=== PATIENT | male | born 1980 | race Caucasian/White ===

== ENCOUNTER 2017-06-20 09:00 | Emergency (ER) | payer SELFPAY ==
[~2017-06-20] VITALS: Ht 180.3 cm; Wt 132.6 kg
[~2017-06-20 09:00] MED LIST: CIPRO500 MG PO; FLOMAX0.4 MG PO; MIRALAX17 GM PO; MOTRIN600 MG PO; OXAYDO5 MG PO; PERCOCET 5/31 TABLET PO; TYLENOL EXTRA500 MG PO; ZOFRAN ODT4 MG PO; ZOFRAN4 MG PO
[2017-06-20 09:26] LABS: HEMATOCRIT 45.2 % (38.0-50.0); HEMOGLOBIN 15.9 G/DL (12.5-16.6); MCH 30.3 PG (29.0-34.0); MCHC 35.2 G/DL (30.0-36.0); MCV 86.3 FL (86-99); PLATELET COUNT 419 K/uL (156-360); RBC DIS.WIDTH-CV 12.5 % (11.8-14.6); RBC DIS.WIDTH-SD 39.2 % (39-53); RED BLOOD COUNT 5.24 M/uL (4.00-5.50)
[2017-06-20 09:32] LABS: ALBUMIN 4.5 g/dL (3.2-4.8); CHLORIDE 105 mEq/L (99-109); POTASSIUM 4.5 mEq/L (3.7-5.4); SODIUM 139 mEq/L (136-147)
[2017-06-20 09:35] LABS: GLUCOSE 117 mg/dL (70-99); TOTAL PROTEIN 7.6 g/dL (6.4-8.3)
[2017-06-20 09:37] LABS: TOTAL BILIRUBIN 0.4 mg/dL (0.0-1.0)
[2017-06-20 09:38] LABS: ALKALINE PHOSPHATASE 104 IU/L (3-129); CREATININE 1.2 mg/dL (0.6-1.3); GFR ESTIMATE (CALCULATED) > 59 mL/min/ (58.99-99999)
[2017-06-20 09:40] LABS: AST (GOT) 21 IU/L (2-34); UREA NITROGEN (BUN) 14 mg/dL (9-23)
[2017-06-20 09:41] LABS: ALT (GPT) 52 IU/L (3-49)
[2017-06-20 11:32] LABS: APPEARANCE CLEAR ((CLEAR)); BILIRUBIN NEGATIVE; BLOOD NEGATIVE; COLOR YELLOW ((YELLOW)); GLUCOSE (STRIP) NEGATIVE; KETONES NEGATIVE; LEUKOCYTES NEGATIVE; NITRITE NEGATIVE; PROTEIN (STRIP) NEGATIVE; SPECIFIC GRAVITY 1.018 (1.000-1.030); UCUL ADDED? NO; UROBILINOGEN 0.2 MG/DL (0.2-1.0)
[2017-06-20 11:52] LABS: AMYLASE 28 IU/L (1-118)
[2017-06-20 12:01] LABS: LIPASE 8 U/L (1.0-51.0)
[2017-06-20 12:48] LABS: TROP-I INTERPRETATION NEGATIVE; TROPONIN-I < 0.01 ng/mL (0.0-0.30)
[2017-06-20] MEDS ORDERED: ZOFRAN4 MG PO (13:29)
[2017-06-20] MEDS ORDERED: PERCOCET 5/31 TABLET PO (13:29)
[2017-06-20 13:52] VITALS: BP 151/91
== END 2017-06-20 13:53 | disposition home or self-care (01) ==
LOC: EME 09:00
DX: K80.20 Calculus of gallbladder without cholecystitis without obstruction (principal)
CPT/HCPCS: 76705; 80053; 81003; 82150; 83690; 84484; 85027; 93005; 99281; 99284

== ENCOUNTER 2017-07-07 02:12 | Emergency (ER) | payer BC ==
[~2017-07-07] VITALS: Ht 180.3 cm; Wt 133.4 kg
[2017-07-07 03:07] LABS: HEMATOCRIT 45.9 % (38.0-50.0); HEMOGLOBIN 16.2 G/DL (12.5-16.6); MCH 30.4 PG (29.0-34.0); MCHC 35.3 G/DL (30.0-36.0); MCV 86.1 FL (86-99); PLATELET COUNT 438 K/uL (156-360); RBC DIS.WIDTH-CV 12.7 % (11.8-14.6); RBC DIS.WIDTH-SD 39.2 % (39-53); RED BLOOD COUNT 5.33 M/uL (4.00-5.50); WHITE BLOOD COUNT 9.3 K/uL (4.1-10.2)
[2017-07-07 03:16] LABS: CHLORIDE 103 mEq/L (99-109); POTASSIUM 4.1 mEq/L (3.7-5.4); SODIUM 141 mEq/L (136-147)
[2017-07-07 03:17] LABS: GLUCOSE 112 mg/dL (70-99)
[2017-07-07 03:21] LABS: CREATININE 1.1 mg/dL (0.6-1.3); GFR ESTIMATE (CALCULATED) > 59 mL/min/ (58.99-99999)
[2017-07-07 03:22] LABS: UREA NITROGEN (BUN) 14 mg/dL (9-23)
[2017-07-07 03:28] LABS: TROP-I INTERPRETATION NEGATIVE; TROPONIN-I < 0.01 ng/mL (0.0-0.30)
[2017-07-07 03:56] LABS: ALBUMIN 4.3 g/dL (3.2-4.8)
[2017-07-07 03:59] LABS: TOTAL PROTEIN 7.7 g/dL (6.4-8.3)
[2017-07-07 04:01] LABS: TOTAL BILIRUBIN 0.6 mg/dL (0.0-1.0)
[2017-07-07 04:02] LABS: ALKALINE PHOSPHATASE 94 IU/L (3-129)
[2017-07-07 04:04] LABS: AST (GOT) 22 IU/L (2-34)
[2017-07-07 04:05] LABS: ALT (GPT) 42 IU/L (3-49); DIRECT BILIRUBIN 0.2 mg/dL (0.0-0.3)
[2017-07-07 04:06] LABS: LIPASE 12 U/L (1.0-51.0)
[2017-07-07 04:53] VITALS: BP 169/117
== END 2017-07-07 04:55 | disposition home or self-care (01) ==
LOC: EME 02:12
DX: R10.13 Epigastric pain (principal); R07.9 Chest pain, unspecified; K80.20 Calculus of gallbladder without cholecystitis without obstruction; Z87.442 Personal history of urinary calculi
CPT/HCPCS: 71046; 80048; 80076; 83690; 84484; 85027; 93005; 99281; 99284

== ENCOUNTER 2017-07-15 03:28 | Emergency (ER) | payer BC ==
[~2017-07-15] VITALS: Ht 180.3 cm; Wt 130.7 kg
[2017-07-15 03:55] LABS: HEMATOCRIT 44.7 % (38.0-50.0); HEMOGLOBIN 15.9 G/DL (12.5-16.6); MCH 30.4 PG (29.0-34.0); MCHC 35.6 G/DL (30.0-36.0); MCV 85.5 FL (86-99); PLATELET COUNT 413 K/uL (156-360); RBC DIS.WIDTH-CV 12.6 % (11.8-14.6); RBC DIS.WIDTH-SD 39.3 % (39-53); RED BLOOD COUNT 5.23 M/uL (4.00-5.50); WHITE BLOOD COUNT 12.7 K/uL (4.1-10.2)
[2017-07-15 04:03] LABS: ALBUMIN 4.5 g/dL (3.2-4.8)
[2017-07-15 04:04] LABS: CHLORIDE 107 mEq/L (99-109); POTASSIUM 4.2 mEq/L (3.7-5.4); SODIUM 140 mEq/L (136-147)
[2017-07-15 04:05] LABS: APPEARANCE CLEAR ((CLEAR)); BILIRUBIN NEGATIVE; BLOOD NEGATIVE; COLOR YELLOW ((YELLOW)); GLUCOSE (STRIP) NEGATIVE; KETONES NEGATIVE; LEUKOCYTES NEGATIVE; NITRITE NEGATIVE; PROTEIN (STRIP) NEGATIVE; SPECIFIC GRAVITY 1.024 (1.000-1.030); UCUL ADDED? NO; UROBILINOGEN 0.2 MG/DL (0.2-1.0)
[2017-07-15 04:06] LABS: GLUCOSE 130 mg/dL (70-99); TOTAL PROTEIN 7.9 g/dL (6.4-8.3)
[2017-07-15 04:08] LABS: TOTAL BILIRUBIN 0.7 mg/dL (0.0-1.0)
[2017-07-15 04:09] LABS: ALKALINE PHOSPHATASE 93 IU/L (3-129)
[2017-07-15 04:10] LABS: CREATININE 1.2 mg/dL (0.6-1.3); GFR ESTIMATE (CALCULATED) > 59 mL/min/ (58.99-99999)
[2017-07-15 04:11] LABS: AST (GOT) 21 IU/L (2-34); UREA NITROGEN (BUN) 18 mg/dL (9-23)
[2017-07-15 04:12] LABS: ALT (GPT) 41 IU/L (3-49)
[2017-07-15 04:13] LABS: LIPASE 9 U/L (1.0-51.0)
[2017-07-15] MEDS ORDERED: CIPRO500 MG PO (11:45)
[2017-07-15] MEDS ORDERED: BENTYL20 MG PO (11:45)
[2017-07-15] MEDS ORDERED: FLAGYL500 MG PO (11:45)
[2017-07-15] MEDS ORDERED: NORCO 5/3251 TABLET PO (11:45)
[2017-07-15 11:55] VITALS: BP 116/75
== END 2017-07-15 11:56 | disposition home or self-care (01) ==
LOC: EME 03:28
DX: K80.10 Calculus of gallbladder with chronic cholecystitis without obstruction (principal); K76.0 Fatty (change of) liver, not elsewhere classified; R19.7 Diarrhea, unspecified; Z87.442 Personal history of urinary calculi
CPT/HCPCS: 76705; 80053; 81003; 83690; 85027; 99281; 99285; J2270; J2405; J7030

== ENCOUNTER 2017-07-30 05:29 | Day surgery (SDC) | payer BC ==
[~2017-07-30] VITALS: Ht 182.9 cm; Wt 120.2 kg
[~2017-07-30 05:29] MED LIST changes: +BENTYL20 MG PO; +FLAGYL500 MG PO; +NORCO 5/3251 TABLET PO
[2017-07-30 06:13] VITALS: BP 134/81
[2017-07-30 06:14] VITALS: BP 134/81
[2017-07-30] MEDS ORDERED: HYDROCODON-ACE1 EA11 PO (09:08)
[2017-07-30] MEDS ORDERED: OXYCODONE HCL5 MG PO (09:08)
[2017-07-30 10:46] VITALS: BP 129/82
[2017-07-30 12:03] VITALS: BP 128/72
[2017-07-30 13:40] VITALS: BP 127/86
[2017-07-30 15:00] VITALS: BP 131/86
== END 2017-07-30 15:27 | disposition home or self-care (01) ==
LOC: SDC 05:29
PROC: 0FT44ZZ Resection of Gallbladder, Percutaneous Endoscopic Approach (ICD-10-PCS; principal; 2017-07-30)
DX: K80.64 Calculus of gallbladder and bile duct with chronic cholecystitis without obstruction (principal); K76.0 Fatty (change of) liver, not elsewhere classified; E66.9 Obesity, unspecified; Z68.39 Body mass index [BMI] 39.0-39.9, adult; Z80.0 Family history of malignant neoplasm of digestive organs; Z87.891 Personal history of nicotine dependence; Z88.8 Allergy status to other drugs, medicaments and biological substances; Z87.442 Personal history of urinary calculi
CPT/HCPCS: 88304; J0131; J0330; J1100; J1170; J1644; J1885; J2001; J2250; J2405; J2710; J2765; J3010; J3475; S0020; S0074